=== PATIENT | female | born 1970 | race Caucasian/White ===

== ENCOUNTER 2021-02-14 17:24 | Emergency (ER) | payer SELFPAY ==
[~2021-02-14] VITALS: Ht 167.6 cm; Wt 80.0 kg
--- NOTE | 2021-02-14 17:52 | NUR ---
SEE TRIAGE. PT WITH MULTIPLE REQUESTS FOR BR, PHONE, FOOD. PT INFORMED OF POC INCLUDING CSPINE PRECAUTIONS, TO STAY IN BED WITH COLLAR ON UNTIL CSPINE CLEARED AND NPO. PT APPEARS DRUNK BUT VERBALIZES UNDERSTANDING OF INSTRUCTIONS. CALL LIGHT WITHIN REACH, WARM BLANKET PROVIDED.
--- NOTE | 2021-02-14 19:03 | NUR ---
RECEIVED REPORT FROM CARLA LOPEZ. TRANSFER OF CARE.
--- NOTE | 2021-02-14 19:09 | NUR ---
REPORT TO MANDO LOPEZ, TRANSFER OF CARE AT THIS TIME.
--- NOTE | 2021-02-14 20:47 | NUR ---
Patient is sleeping comfortably in bed. eyes closed. Bed in lowest, rails engaged, call light on lap. Vital Signs within normal limits. WCTM.
--- NOTE | 2021-02-14 21:11 | NUR ---
PT PASSED ROADTEST. GIVEN NON SLIP SOCKS. AMBULATED TO BATHROOM WITH STEADY GAIT. PT URINATED AND AMBULATED BACK TO ROOM WITH STEADY GAIT. C COLLAR STILL APPLIED. PT GIVEN WATER. PT BACK IN BED ATTACHED TO MONITORS. VSS
[2021-02-14 21:17] VITALS: BP 114/78
--- NOTE | 2021-02-14 21:18 | NUR ---
Patient given discharge instructions and they have confirmed that they understand the instructions. Patient ambulatory with steady gait. NAD, all questions answered appropriately, denies additional needs at this time. No personal belongings left in room after discharge. PT GIVEN BUS PASS AND EDUCATED ABOUT MTM NUMBER FOR SAFE DC.
== END 2021-02-14 21:32 | disposition home or self-care (01) ==
LOC: ED 18:00 → EDIP 19:28 → UNDOADMIN 19:28 → ED 21:32
DX: S16.1XXA Strain of muscle, fascia and tendon at neck level, initial encounter (principal); R51.9 Headache, unspecified; F10.120 Alcohol abuse with intoxication, uncomplicated; L03.113 Cellulitis of right upper limb; F17.210 Nicotine dependence, cigarettes, uncomplicated; Y04.8XXA Assault by other bodily force, initial encounter; Y93.89 Activity, other specified; Y92.89 Other specified places as the place of occurrence of the external cause; Y99.8 Other external cause status; Y90.0 Blood alcohol level of less than 20 mg/100 ml
CPT/HCPCS: 70450; 72125; 99285

== ENCOUNTER 2021-05-23 02:18 | Emergency (ER) | payer MEDICAID ==
[~2021-05-23] VITALS: Ht 167.6 cm; Wt 80.0 kg
[2021-05-23 02:22] VITALS: BP 133/86
== END 2021-05-23 03:42 | disposition home or self-care (01) ==
LOC: ED 03:35
DX: M79.671 Pain in right foot (principal); M79.672 Pain in left foot; F15.10 Other stimulant abuse, uncomplicated; L01.01 Non-bullous impetigo; Z72.9 Problem related to lifestyle, unspecified